=== PATIENT | male | born 1970 | race Caucasian/White ===

== ENCOUNTER 2017-10-06 10:16 | Emergency (ER) | payer SELFPAY ==
[2017-10-06] MEDS ORDERED: IBUPROFEN 600 MG TAB PO ONE (10:28)
[2017-10-06] MEDS ORDERED: LIDOCAINE 5% 1 EA PATCH TD ONE ×2 (10:28→10:32)
[2017-10-06] MEDS ORDERED: ACETAMINOPHEN 500 MG TAB PO ONE (10:28)
[2017-10-06] MEDS ORDERED: DIAZEPAM 5 MG TAB PO ONE (10:28)
--- NOTE | 2017-10-06 10:31 | EDPHY ---
H & P Stated Complaint: Acute low back pain Time Seen by Provider: 10/06/17 10:17 HPI/ROS: CHIEF COMPLAINT: Acute low back pain HISTORY OF PRESENT ILLNESS: The patient presents to the emergency department with several days of acute low back pain. The patient reports he has been caring a heavy backpack over the past several days. The patient denies any acute numbness or weakness. He denies bowel or bladder dysfunction. The patient denies history of fever or IV drug use. The patient denies prior history of back surgery. The patient has no history of malignancy. The patient denies significant past medical history. He takes no regular prescription medications. The patient reports his pain is moderate in nature and worsened with movement specifically axial rotation. The pain is bilateral and not midline involving his musculature in the paraspinal region. REVIEW OF SYSTEMS: A comprehensive 10 point review of systems is otherwise negative aside from elements mentioned in the history of present illness. Source: Patient Exam Limitations: No limitations - Personal History Current Tetanus Diphtheria and Acellular Pertussis (TDAP): Yes - Medical/Surgical History Hx Asthma: No Hx Chronic Respiratory Disease: No Hx Diabetes: No Hx Cardiac Disease: No Hx Renal Disease: No Hx Cirrhosis: No Hx Alcoholism: No Hx HIV/AIDS: No Hx Splenectomy or Spleen Trauma: No Other PMH: Neck Fx (Age 18), Tailbone Fx (age 12) - Social History Smoking Status: Current every day smoker - Physical Exam Exam: General Appearance: Alert, no distress Eyes: Pupils equal and round no pallor or injection ENT, Mouth: Mucous membranes moist Respiratory: There are no retractions, lungs are clear to auscultation Cardiovascular: Regular rate and rhythm Gastrointestinal: Abdomen is soft and nontender, no masses, bowel sounds normal Neurological: 5/5 strength in all muscles in the bilateral lower extremity, sensation intact to light touch, no clonus, normal DTRs Skin: Warm and dry, no rashes Musculoskeletal: Tenderness to palpation bilateral lower paraspinal muscle groups, no midline lumbar pain Extremities: symmetrical, full range of motion Constitutional: Initial Vital Signs Temperature (C) 36.6 C 10/06/17 10:24 Heart Rate 71 10/06/17 10:24 Respiratory Rate 18 10/06/17 10:24 Blood Pressure 125/75 H 10/06/17 10:24 O2 Sat (%) 98 01/08/18 10:24 O2 Delivery Mode Room Air Allergies/Adverse Reactions: No Known Allergies Allergy (Unverified 10/06/17 10:24) Home Medications: Medication Instructions Recorded Diazepam [Valium 10 MG (RX)] 10 mg PO TID PRN #20 tab 10/06/17 Lidocaine 5% [Lidoderm 5% Patch 1 ea TD DAILY #12 patch 10/06/17 (*)] Medical Decision Making ED Course/Re-evaluation: The patient presents to the ED with acute musculoskeletal lumbar pain. The patient has no red flag warnings which would indicate a more serious cause of low back pain. The patient received Tylenol, ibuprofen and and a lidocaine patch in the emergency department. He is noted to be neurologically intact. The patient was re-evaluated at 11:20 a.m.. He is currently feeling better. The patient will be discharged home with a prescription for lidocaine and Valium. He is advised to follow up with [facility] for primary care. The patient should return to the ED for the development of any acute numbness, weakness or other concerns. Differential Diagnosis: Differential diagnosis considered includes lumbar fracture, myofascial strain, sciatica - Data Points Medications Given: Miscellaneous Information (Patch Removal) 1 ea TD DAILY21 SIS Stop: 04/04/18 20:59 Last Admin: 10/06/17 11:07 Dose: Not Given Discontinued Medications Acetaminophen (Tylenol) 1,000 mg PO EDNOW ONE Stop: 10/06/17 10:29 Last Admin: 10/06/17 10:35 Dose: 1,000 mg Diazepam (Valium) 5 mg PO EDNOW ONE Stop: 10/06/17 10:29 Last Admin: 10/06/17 10:35 Dose: 5 mg Ibuprofen (Motrin) 600 mg PO EDNOW ONE Stop: 10/06/17 10:29 Last Admin: 10/06/17 10:35 Dose: 600 mg Lidocaine (Lidoderm 5%) 1 ea TD EDNOW ONE Stop: 10/06/17 10:29 Last Admin: 10/06/17 10:35 Dose: 1 ea Departure - Departure Disposition: Home, Routine, Self-Care Clinical Impression: Lumbar spine strain Condition: Good Instructions: Low Back Strain (ED) Additional Instructions: 1. Take Ibuprofen or Motrin 600 mg by mouth three times a day. 2. Valium as needed for muscle relaxant. 3. Lidocaine patches as needed for pain. 4. Return to the ED for any acute numbness or weakness. 5. Please schedule a [facility]. Referrals: [facility],. [Clinic] - As per Instructions
[2017-10-06 11:42] VITALS: BP 122/80; PULSE 81; RESP 16; TEMP 98.6; O2SAT 97
[2017-10-06] MEDS ORDERED: PATCH REMOVAL 1 EA PATCH TD SCH (21:00)
== END 2017-10-06 11:39 | disposition home or self-care (01) ==
DX: S39.012A Strain of muscle, fascia and tendon of lower back, initial encounter (principal); F17.200 Nicotine dependence, unspecified, uncomplicated; X50.0XXA Overexertion from strenuous movement or load, initial encounter